=== PATIENT | female | born 1990 | race Caucasian/White ===

== ENCOUNTER 2022-03-31 20:00 | Outpatient (CLI) | payer OTHER, BC, SELFPAY | END 2022-03-31 20:01 | disposition home or self-care (01) | LOC: SLEEP 04-01 05:04 | PROVIDERS: Family Provider Family Medicine; Visit Provider Nurse Practitioner Family | DX: G47.33 Obstructive sleep apnea (adult) (pediatric) (principal); G47.10 Hypersomnia, unspecified | CPT/HCPCS: 95810 ==

== ENCOUNTER 2022-06-20 20:00 | Outpatient (CLI) | payer BC, SELFPAY | END 2022-06-20 20:01 | disposition home or self-care (01) | LOC: SLEEP 06-21 05:01 | PROVIDERS: Family Provider Family Medicine; Visit Provider Nurse Practitioner Family | DX: G47.33 Obstructive sleep apnea (adult) (pediatric) (principal) | CPT/HCPCS: 95811 ==

== ENCOUNTER 2023-06-12 12:45 | Outpatient (CLI) | payer BC, SELFPAY ==
--- NOTE | 2023-06-12 13:06 | USCV_ITS ---
Hilary Garay Age: 32 Gender: F : 1990 Exam Date: 06/12/2023 13:28 Ordering Phys: Heather Penn NP Technologist: CT Exam [place] [facility] [place] Indication: calf pain PROCEDURES: Venous duplex imaging was performed in only the left lower extremity. On the left side, the common femoral, superficial femoral, profunda femoral, popliteal, posterior tibial, greater saphenous veins, and the peroneal trunk were identified and interrogated in the standard fashion. These veins were found to be easily compressible with spontaneous blood flow. No evidence of insufficiency or thrombus noted. CONCLUSIONS No evidence of left lower extremity DVT. Humphrey Livingston MD (Electronically Signed) Final Date: 12 June 2023 14:28 S
== END 2023-06-12 12:46 | disposition home or self-care (01) ==
PROVIDERS: PCP Nurse Practitioner Family; Visit Provider Nurse Practitioner Family
DX: M79.662 Pain in left lower leg (principal)
CPT/HCPCS: 93971